=== PATIENT | female | born 1965 | race African-American/Black ===

== ENCOUNTER 2017-11-01 18:01 | Emergency (ER) | payer SELFPAY ==
[~2017-11-01] VITALS: Ht 167.6 cm; Wt 68.0 kg
[~2017-11-01 18:01] MED LIST: LORT7.5T3 PO; Z.0.NO CURRENT MEDS
[2017-11-01 18:04] VITALS: BP 205/115; PULSE 72; RESP 18; TEMP 99.2; O2SAT 98
--- NOTE | 2017-11-01 20:41 | PD ---
HPI Chief Complaint: Oral / Dental Pain or Problem Time Seen by Provider: 20:36 Travel History International Travel<30 days: No Contact w/Intl Traveler<30days: No Traveled to known affect area: No History of Present Illness HPI 52-year-old -[place] female presents emergency department with dental pain over the past 24 hours. Patient has pain and swelling in the right upper jaw corresponding to the #1 and #2 teeth. She has some mild swelling in this area. She has sensitivity to hot and cold. She has no fever, chills, or difficulty swallowing. No significant abscess is noted. She is noted to be quite hypertensive in triage, and states that she is supposed be taking lisinopril 10 mg daily but has not been taking it due to insurance issues. Pain is currently 8 out of 10. She has no known drug allergies PFSH Social History Alcohol Use: No Tobacco Use: No Substance Use: No Allergies-Medications (Allergen,Severity, Reaction): Coded Allergies: No Known Allergies (Verified Allergy, Mild, 10/31/07) Reported Meds & Prescriptions Reported Meds & Active Scripts Active Lortab 7.5/500 (Acetaminophen/Hydrocodone Bitart) Tab 1 Tab PO Q6HPRN FOR PAIN Reported No Current Meds (Miscellaneous Medication) Misc Review of Systems Except as stated in HPI: all other systems reviewed are Neg General / Constitutional: No: Fever Eyes: No: Visual changes HENT: Positive: Dental Difficulties, Earache, No: Headaches, Vertigo, Lightheadedness, Sore Throat, Rhinitis, Rhinorrhea, Congestion, Nosebleed, Neck Stiffness, Neck Pain, Gingival Bleeding, Ear Discharge Cardiovascular: No: Chest Pain or Discomfort Respiratory: No: Shortness of Breath Gastrointestinal: No: Abdominal Pain Genitourinary: No: Dysuria Musculoskeletal: No: Pain Skin: No Rash Neurologic: No: Weakness Psychiatric: No: Depression Endocrine: No: Polydipsia Hematologic/Lymphatic: No: Easy Bruising Physical Exam Narrative GENERAL: Patient appears in moderate distress SKIN: Warm and dry. Normal color. Normal turgor HEAD: Atraumatic. Normocephalic. EYES: Pupils equal and round. No scleral icterus. No injection or drainage. ENT: No nasal bleeding or discharge. Mucous membranes pink and moist. Patient has mild swelling to the gingiva of the right upper jaw without significant abscess noted. Posterior pharynx is unremarkable. TMs are clear bilaterally. NECK: Trachea midline. Supple and nontender. CARDIOVASCULAR: Regular rate and rhythm. RESPIRATORY: No accessory muscle use. Clear to auscultation. Breath sounds equal bilaterally. GASTROINTESTINAL: Abdomen soft, non-tender, nondistended. Hepatic and splenic margins not palpable. MUSCULOSKELETAL: Extremities without clubbing, cyanosis, or edema. No obvious deformities. NEUROLOGICAL: Awake and alert. No obvious cranial nerve deficits. Motor grossly within normal limits. Five out of 5 muscle strength in the arms and legs. Normal speech. PSYCHIATRIC: Appropriate mood and affect; insight and judgment normal. Data Data Last Documented VS Vital Signs Date Time Temp Pulse Resp B/P (MAP) Pulse Ox O2 Delivery O2 Flow Rate FiO2 11/01/17 18:04 99.2 72 18 205/115 (145) 98 MDM Medical Decision Making Medical Screen Exam Complete: Yes Emergency Medical Condition: Yes Differential Diagnosis Dental caries. Dental pain. Dental abscess. Trismus. Narrative Course Patient is medically stable at time of exam. Patient is given lisinopril 20 mg p.o. now. Patient is given 1000 mg Pen-Vee K p.o. now. Patient is given Toradol 60 mg IM. Patient will be continued on Pen-Vee K 500 mg 4 times daily 7 days. Patient is given Magic mouthwash as directed every 2 hours as needed dental pain. Patient is given ibuprofen 600 mg 4 times daily #40 Patient given lisinopril 10 mg daily #30 with 2 refills Patient to follow-up with dentist as soon as possible. Diagnosis Primary Impression: Pain due to dental caries Additional Impression: Hypertension Qualified Codes: I10 - Essential (primary) hypertension Patient Instructions: 3 Gram Sodium Diet (DC), Dental Abscess (ED), General Instructions Additional Instructions: Patient is given lisinopril 20 mg p.o. now. Patient is given 1000 mg Pen-Vee K p.o. now. Patient is given Toradol 60 mg IM. Patient will be continued on Pen-Vee K 500 mg 4 times daily 7 days. Patient is given Magic mouthwash as directed every 2 hours as needed dental pain. Patient is given ibuprofen 600 mg 4 times daily #40 Patient given lisinopril 10 mg daily #30 with 2 refills Patient to follow-up with dentist as soon as possible. Med/Other Pt SpecificInfo: Prescription(s) given Disposition: 01 DISCHARGE HOME Condition: Stable Tashi Rosas November 01, 2017 20:41
[2017-11-01] MEDS ORDERED: KETOROLAC TROMETHAMINE 60 MG/2 ML (IM) VIAL IM ONE (20:45)
[2017-11-01] MEDS ORDERED: LISINOPRIL 20 MG TAB PO ONE (20:45)
[2017-11-01] MEDS ORDERED: PENICILLIN V POTASSIUM 500 MG TAB PO ONE (20:45)
[2017-11-01] MEDS ORDERED: LISI10TA3 PO (20:48)
[2017-11-01] MEDS ORDERED: MAGICADU2 SWISH-SPIT (20:48)
[2017-11-01] MEDS ORDERED: PENI500T PO (20:48)
[2017-11-01] MEDS ORDERED: IBUP-232 PO (20:48)
== END 2017-11-01 21:28 | disposition home or self-care (01) ==
LOC: NEPD 18:01
DX: K02.9 Dental caries, unspecified (principal); K08.89 Other specified disorders of teeth and supporting structures; I10 Essential (primary) hypertension
CPT/HCPCS: 96372; 99283; J1885